=== PATIENT | female | born 2000 | race Hispanic/Latino ===

== ENCOUNTER 2020-08-23 11:58 | Emergency (ER) | payer SELFPAY ==
[2020-08-23] MEDS ORDERED: Ketorolac Tromethamine 30 MG/ML VIAL ONE (12:59)
[2020-08-23] MEDS ORDERED: Acetaminophen 325 MG TAB ONE (12:59)
== END 2020-08-23 14:09 | disposition home or self-care (01) ==
LOC: ERS 11:58
DX: M53.3 Sacrococcygeal disorders, not elsewhere classified (principal)
CPT/HCPCS: 72220; 96372; J1885